=== PATIENT | male | born 1990 | race Caucasian/White ===

== ENCOUNTER 2019-09-28 09:58 | Emergency (ER) | payer BC ==
[~2019-09-28] VITALS: Ht 185.4 cm; Wt 93.0 kg
[2019-09-28 10:10] VITALS: Ht 185.4 cm; Wt 93.0 kg
[2019-09-28 12:41] VITALS: BP 122/75
== END 2019-09-28 12:41 | disposition home or self-care (01) ==
LOC: ED 09:58
DX: R56.9 Unspecified convulsions (principal); S01.111A Laceration without foreign body of right eyelid and periocular area, initial encounter; W45.8XXA Other foreign body or object entering through skin, initial encounter; Y93.89 Activity, other specified; Y92.89 Other specified places as the place of occurrence of the external cause; Y99.8 Other external cause status
CPT/HCPCS: J1953; J2001

== ENCOUNTER 2019-09-30 13:47 | Emergency (ER) | payer BC ==
[~2019-09-30] VITALS: Ht 188 cm; Wt 96.2 kg
[2019-09-30 13:53] VITALS: Ht 188 cm; Wt 96.2 kg
[2019-09-30 14:45] VITALS: BP 123/66
== END 2019-09-30 14:45 | disposition home or self-care (01) ==
LOC: ED 13:47
DX: S01.111D Laceration without foreign body of right eyelid and periocular area, subsequent encounter (principal); X58.XXXD Exposure to other specified factors, subsequent encounter

== ENCOUNTER 2019-10-03 14:33 | Emergency (ER) | payer BC ==
[~2019-10-03] VITALS: Ht 185.4 cm; Wt 94.8 kg
[2019-10-03 14:49] VITALS: BP 130/91; Ht 185.4 cm; Wt 94.8 kg
== END 2019-10-03 15:44 | disposition home or self-care (01) ==
LOC: ED 14:33
DX: S01.111D Laceration without foreign body of right eyelid and periocular area, subsequent encounter (principal); S05.11XD Contusion of eyeball and orbital tissues, right eye, subsequent encounter; X58.XXXD Exposure to other specified factors, subsequent encounter